=== PATIENT | female | born 1990 | race African-American/Black ===

== ENCOUNTER 2019-01-28 14:46 | Emergency (ER) | payer OTHER ==
[2019-01-28] MEDS: DIPHTH/TET/ACEL PERTUSS (ADULT) 0.5 ML VIAL IM* (16:23)
== END 2019-01-28 18:00 | disposition home or self-care (01) ==
LOC: FTE 14:46
DX: S50.311A Abrasion of right elbow, initial encounter (principal); J45.909 Unspecified asthma, uncomplicated; S49.91XA Unspecified injury of right shoulder and upper arm, initial encounter; S79.911A Unspecified injury of right hip, initial encounter; S89.91XA Unspecified injury of right lower leg, initial encounter; R10.2 Pelvic and perineal pain; V13.4XXA Pedal cycle driver injured in collision with car, pick-up truck or van in traffic accident, initial encounter; Z23 Encounter for immunization
CPT/HCPCS: 72192; 73010; 73020; 73080-RT; 73502; 73510; 73590; 81025; 90471; 90715; 99284-25